=== PATIENT | female | born 1970 | race Caucasian/White ===

== ENCOUNTER 2018-02-20 10:39 | Emergency (ER) | payer OTHER ==
[~2018-02-20] VITALS: Ht 142.2 cm; Wt 56.7 kg
[2018-02-20] MEDS ORDERED: IBUPROFEN 600 MG TABLET PO ONE (11:15)
[2018-02-20] MEDS ORDERED: IBUPROFEN 600 MG TABLET ONE (11:21)
--- NOTE | 2018-02-20 13:14 | NUR ---
Patient discharged to home in stable conditon. Written and verbal after care instructions given. Patient verbalizes understanding of instructions.
== END 2018-02-20 13:16 | disposition home or self-care (01) ==
LOC: ER 10:39
DX: S13.4XXA Sprain of ligaments of cervical spine, initial encounter (principal); I10 Essential (primary) hypertension; V49.9XXA Car occupant (driver) (passenger) injured in unspecified traffic accident, initial encounter; Y93.89 Activity, other specified; Y92.410 Unspecified street and highway as the place of occurrence of the external cause; Y99.8 Other external cause status
CPT/HCPCS: 72040; 99284; A4663